=== PATIENT | male | born 1950 | race Caucasian/White ===

== ENCOUNTER 2019-01-13 08:26 | Emergency (ER) | payer MEDICARE, MEDICAID ==
[~2019-01-13] VITALS: Ht 165.1 cm; Wt 83.5 kg
[~2019-01-13 08:26] MED LIST: ASPI81TA5 PO; ATEN100T PO; CLOP75TA15 PO; DOCU100T2 PO; FENO134C PO; FURO-144 PO; HYDR12.5 PO; ISOS60TA6 PO; LOSA50TA3 PO; NAPR500T6 PO; PANT40SU PO; PRAV40TA PO; RANO500T3 PO; SPIR25TA PO
--- NOTE | 2019-01-13 08:40 | NUR ---
patient presented to the ER from home BIBRA due to weakness. On room air, breathing evenly and unlabored. Connected to the monitor and pulse ox. MD at bedside for eval. Kept comfortable, will continue to monitor accordingly.
[2019-01-13 08:50] LABS: BASOPHILS % (AUTO) 0.7 % (0.0-2.0); EOSINOPHILS % (AUTO) 1.3 % (0.0-6.0); HEMATOCRIT 52 % (39-51); HEMOGLOBIN 17.4 g/dL (13.5-17.5); LYMPHOCYTES # (AUTO) 1.3 /CMM (0.8-4.8); LYMPHOCYTES % (AUTO) 21.5 % (20.0-44.0); MEAN CORPUSCULAR HGB CONC 34 g/dl (31.0-36.0); MEAN CORPUSCULAR VOLUME 100 fL (80-96); MONOCYTES # (AUTO) 0.3 /CMM (0.1-1.30); MONOCYTES % (AUTO) 5.2 % (2.0-12.0); NEUTROPHILS # (AUTO) 4.2 /CMM (1.8-8.9); NEUTROPHILS % (AUTO) 71.3 % (43.0-81.0); PLATELET COUNT (AUTO) 165 /CMM (150-450)
--- NOTE | 2019-01-13 08:57 | NUR ---
patient wheeled via gurney going for CT scan.
[2019-01-13 08:58] LABS: CREATININE 1.2 mg/dL (0.6-1.3); POTASSIUM 4.5 mmol/L (3.5-5.1)
[2019-01-13] MEDS ORDERED: IV NS 0.9% 1,000 ML BAG IV ONE (09:00)
--- NOTE | 2019-01-13 09:05 | NUR ---
patient came back from ct.
[2019-01-13 09:08] LABS: ALBUMIN 3.3 g/dL (3.4-5.0); BILIRUBIN,DIRECT 0.1 mg/dL (0.0-0.2); BILIRUBIN,TOTAL 0.4 mg/dL (0.2-1.0); TOTAL PROTEIN, SERUM 6.6 g/dL (6.4-8.2)
[2019-01-13] MEDS ORDERED: FOLIC ACID 1 MG TABLET PO ONE (10:00)
[2019-01-13] MEDS ORDERED: THIAMINE HCL 100 MG TABLET PO ONE (10:00)
[2019-01-13] MEDS ORDERED: THIAMINE HCL 100 MG TABLET ONE (10:02)
[2019-01-13] MEDS ORDERED: FOLIC ACID 1 MG TABLET ONE (10:02)
[2019-01-13 11:12] LABS: APPEARANCE,URINE Clear (CLEAR); BILIRUBIN,URINE Negative (NEGATIVE); BLOOD, URINE Negative Ery/uL (NEGATIVE); COLOR,URINE Yellow (YELLOW); KETONES,URINE Negative (NEGATIVE); LEUKOCYTE ESTERASE ,URINE Negative (NEGATIVE); NITRITE, URINE Negative (NEGATIVE); PROTEIN,URINE Negative (NEGATIVE); UGLUCOSE Negative (NEGATIVE); UROBILINOGEN,URINE 0.2 EU/dL (0.2)
[2019-01-13 12:50] VITALS: BP 115/66
--- NOTE | 2019-01-13 12:51 | NUR ---
Patient discharged to home in stable condition. Written and verbal after care instructions given. Patient verbalizes understanding of instruction.IV removed. Catheter intact and site benign. Pressure and 4x4 applied to site. No bleeding noted.
== END 2019-01-13 12:51 | disposition home or self-care (01) ==
LOC: ER 08:28
DX: F10.129 Alcohol abuse with intoxication, unspecified (principal); R53.1 Weakness; I10 Essential (primary) hypertension; Z95.818 Presence of other cardiac implants and grafts; Z79.82 Long term (current) use of aspirin; Z79.899 Other long term (current) drug therapy; Y90.8 Blood alcohol level of 240 mg/100 ml or more
CPT/HCPCS: 36415; 70450; 71045; 80048; 80076; 80305; 80307; 80329; 81001; 82140; 84484; 85025; 85730; 93005 ×2; 96360; 99284; G0480; J7030; 81000-TC

== ENCOUNTER 2019-05-27 14:00 | Outpatient (CLI) | payer MEDICARE, MEDICAID | END 2019-05-27 23:59 | disposition home or self-care (01) | LOC: WOU 14:00 | PROVIDERS: ATTEND Podiatrist Foot & Ankle Surgery | DX: E11.621 Type 2 diabetes mellitus with foot ulcer (principal); L97.418 Non-pressure chronic ulcer of right heel and midfoot with other specified severity; Z79.84 Long term (current) use of oral hypoglycemic drugs; Z95.5 Presence of coronary angioplasty implant and graft; Z79.82 Long term (current) use of aspirin; Z79.899 Other long term (current) drug therapy; I10 Essential (primary) hypertension; E78.5 Hyperlipidemia, unspecified; I25.10 Atherosclerotic heart disease of native coronary artery without angina pectoris | CPT/HCPCS: 11042; 87070-TC ==

== ENCOUNTER 2019-05-28 08:57 | Outpatient (CLI) | payer MEDICARE, MEDICAID | END 2019-05-28 23:59 | disposition home or self-care (01) | LOC: RAD 08:57 | PROVIDERS: ATTEND Podiatrist Foot & Ankle Surgery | DX: Z75.3 Unavailability and inaccessibility of health-care facilities (principal) ==

== ENCOUNTER 2019-05-28 09:30 | Outpatient (CLI) | payer MEDICARE, MEDICAID | END 2019-05-28 23:59 | disposition home or self-care (01) | LOC: WOU 09:30 | PROVIDERS: ATTEND Podiatrist Foot & Ankle Surgery | DX: E11.621 Type 2 diabetes mellitus with foot ulcer (principal); L97.529 Non-pressure chronic ulcer of other part of left foot with unspecified severity; E11.51 Type 2 diabetes mellitus with diabetic peripheral angiopathy without gangrene; I70.203 Unspecified atherosclerosis of native arteries of extremities, bilateral legs | CPT/HCPCS: 73630-TC ==

== ENCOUNTER 2019-06-09 08:50 | Outpatient (CLI) | payer MEDICARE, MEDICAID | END 2019-06-09 23:59 | disposition home or self-care (01) | LOC: WOU 08:50 | PROVIDERS: ATTEND Podiatrist Foot & Ankle Surgery | DX: E11.621 Type 2 diabetes mellitus with foot ulcer (principal); L97.422 Non-pressure chronic ulcer of left heel and midfoot with fat layer exposed; M79.672 Pain in left foot; Z79.84 Long term (current) use of oral hypoglycemic drugs; Z79.02 Long term (current) use of antithrombotics/antiplatelets | CPT/HCPCS: 11042; 82962-TC ==

== ENCOUNTER 2019-06-16 09:00 | Outpatient (CLI) | payer MEDICARE, MEDICAID | END 2019-06-16 23:59 | disposition home or self-care (01) | LOC: WOU 09:00 | PROVIDERS: ATTEND Podiatrist Foot & Ankle Surgery | DX: E11.621 Type 2 diabetes mellitus with foot ulcer (principal); L97.422 Non-pressure chronic ulcer of left heel and midfoot with fat layer exposed; Z79.84 Long term (current) use of oral hypoglycemic drugs; Z79.02 Long term (current) use of antithrombotics/antiplatelets | CPT/HCPCS: 11042; 82962; 87070; 87075; 88305; 88312; J3490 ==

== ENCOUNTER 2019-06-24 14:00 | Outpatient (CLI) | payer MEDICARE, MEDICAID | END 2019-06-24 23:59 | disposition home or self-care (01) | LOC: WOU 14:00 | PROVIDERS: ATTEND Podiatrist Foot & Ankle Surgery | PROC: 0HQNXZZ Repair Left Foot Skin, External Approach (ICD-10-PCS; principal; 2019-06-24) | DX: E11.621 Type 2 diabetes mellitus with foot ulcer (principal); L97.422 Non-pressure chronic ulcer of left heel and midfoot with fat layer exposed | CPT/HCPCS: 12001; J3490 ==

== ENCOUNTER 2019-06-30 09:00 | Outpatient (CLI) | payer MEDICARE, MEDICAID | END 2019-06-30 23:59 | disposition home or self-care (01) | LOC: WOU 09:00 | PROVIDERS: ATTEND Podiatrist Foot & Ankle Surgery | DX: E11.621 Type 2 diabetes mellitus with foot ulcer (principal); L97.428 Non-pressure chronic ulcer of left heel and midfoot with other specified severity; M79.672 Pain in left foot; Z79.84 Long term (current) use of oral hypoglycemic drugs; Z79.02 Long term (current) use of antithrombotics/antiplatelets; Z79.899 Other long term (current) drug therapy | CPT/HCPCS: G0463 ==

== ENCOUNTER 2019-07-15 13:30 | Outpatient (CLI) | payer MEDICARE, MEDICAID | END 2019-07-15 23:59 | disposition home health service (06) | LOC: WOU 13:30 | PROVIDERS: ATTEND Podiatrist Foot & Ankle Surgery | DX: Z48.817 Encounter for surgical aftercare following surgery on the skin and subcutaneous tissue (principal); Z79.84 Long term (current) use of oral hypoglycemic drugs; Z79.82 Long term (current) use of aspirin; E11.69 Type 2 diabetes mellitus with other specified complication; Z86.31 Personal history of diabetic foot ulcer | CPT/HCPCS: 82962; G0463 ==

== ENCOUNTER → 2019-08-12 | Outpatient (CLI) | payer MEDICARE, MEDICAID | END | disposition home health service (06) | LOC: WOU 13:00 | PROVIDERS: ATTEND Podiatrist Foot & Ankle Surgery | DX: L84 Corns and callosities (principal); L85.3 Xerosis cutis; R21 Rash and other nonspecific skin eruption; M79.672 Pain in left foot; E11.9 Type 2 diabetes mellitus without complications; Z86.31 Personal history of diabetic foot ulcer; S40.029A Contusion of unspecified upper arm, initial encounter; W45.8XXA Other foreign body or object entering through skin, initial encounter; Y92.89 Other specified places as the place of occurrence of the external cause | CPT/HCPCS: G0463 ==

== ENCOUNTER 2019-08-19 13:20 | Outpatient (CLI) | payer MEDICARE, MEDICAID | END 2019-08-19 23:59 | disposition home health service (06) | LOC: WOU 13:20 | PROVIDERS: ATTEND Specialist | DX: M79.672 Pain in left foot (principal); L84 Corns and callosities; S40.021A Contusion of right upper arm, initial encounter; X58.XXXA Exposure to other specified factors, initial encounter; Y92.89 Other specified places as the place of occurrence of the external cause | CPT/HCPCS: G0463 ==

== ENCOUNTER 2019-08-26 13:10 | Outpatient (CLI) | payer MEDICARE, MEDICAID | END 2019-08-26 23:59 | disposition home or self-care (01) | LOC: WOU 13:10 | PROVIDERS: ATTEND Specialist | DX: L27.1 Localized skin eruption due to drugs and medicaments taken internally (principal); L29.9 Pruritus, unspecified; E11.40 Type 2 diabetes mellitus with diabetic neuropathy, unspecified; E78.5 Hyperlipidemia, unspecified; I10 Essential (primary) hypertension; Z86.31 Personal history of diabetic foot ulcer; Z79.84 Long term (current) use of oral hypoglycemic drugs; Z79.899 Other long term (current) drug therapy | CPT/HCPCS: G0463 ==

== ENCOUNTER 2019-08-28 10:35 | Outpatient (CLI) | payer MEDICARE, MEDICAID | END 2019-08-28 23:59 | disposition home or self-care (01) | LOC: WOU 10:35 | PROVIDERS: ATTEND Podiatrist Foot & Ankle Surgery | DX: L84 Corns and callosities (principal); E11.40 Type 2 diabetes mellitus with diabetic neuropathy, unspecified; M79.672 Pain in left foot; B35.1 Tinea unguium | CPT/HCPCS: G0463 ==

== ENCOUNTER 2019-09-11 10:45 | Outpatient (CLI) | payer MEDICARE, MEDICAID | END 2019-09-11 23:59 | disposition home health service (06) | LOC: WOU 10:45 | PROVIDERS: ATTEND Podiatrist Foot & Ankle Surgery | DX: L84 Corns and callosities (principal); E11.40 Type 2 diabetes mellitus with diabetic neuropathy, unspecified; M79.672 Pain in left foot; E78.5 Hyperlipidemia, unspecified; I10 Essential (primary) hypertension; Z95.5 Presence of coronary angioplasty implant and graft; Z79.82 Long term (current) use of aspirin | CPT/HCPCS: G0463 ==

== ENCOUNTER 2019-10-14 12:37 | Outpatient (CLI) | payer MEDICARE, MEDICAID | END 2019-10-14 23:59 | disposition home or self-care (01) | LOC: WOU 12:37 | PROVIDERS: ATTEND Podiatrist Foot & Ankle Surgery | DX: Z09 Encounter for follow-up examination after completed treatment for conditions other than malignant neoplasm (principal); L84 Corns and callosities; E11.40 Type 2 diabetes mellitus with diabetic neuropathy, unspecified; Z86.31 Personal history of diabetic foot ulcer; M79.672 Pain in left foot | CPT/HCPCS: G0463 ==

== ENCOUNTER 2019-11-04 12:00 | Outpatient (CLI) | payer MEDICARE, MEDICAID | END 2019-11-04 23:55 | disposition home or self-care (01) | LOC: WOU 12:00 | PROVIDERS: ATTEND Specialist | DX: L24.89 Irritant contact dermatitis due to other agents (principal); E11.40 Type 2 diabetes mellitus with diabetic neuropathy, unspecified; M79.672 Pain in left foot; L84 Corns and callosities; I10 Essential (primary) hypertension; E78.5 Hyperlipidemia, unspecified; Z95.5 Presence of coronary angioplasty implant and graft; Z79.82 Long term (current) use of aspirin; Z79.84 Long term (current) use of oral hypoglycemic drugs | CPT/HCPCS: G0463 ==

== ENCOUNTER 2019-11-11 11:00 | Outpatient (CLI) | payer MEDICARE, MEDICAID | END 2019-11-11 23:59 | disposition home or self-care (01) | LOC: WOU 11:00 | PROVIDERS: ATTEND Specialist | DX: L24.89 Irritant contact dermatitis due to other agents (principal); E11.42 Type 2 diabetes mellitus with diabetic polyneuropathy; I10 Essential (primary) hypertension; E78.5 Hyperlipidemia, unspecified; Z98.61 Coronary angioplasty status | CPT/HCPCS: G0463 ==

== ENCOUNTER 2019-11-18 11:00 | Outpatient (CLI) | payer MEDICARE, MEDICAID | END 2019-11-18 23:59 | disposition home health service (06) | LOC: WOU 11:00 | PROVIDERS: ATTEND Specialist | DX: L24.89 Irritant contact dermatitis due to other agents (principal); Z79.02 Long term (current) use of antithrombotics/antiplatelets; I10 Essential (primary) hypertension; E78.5 Hyperlipidemia, unspecified; Z95.5 Presence of coronary angioplasty implant and graft; E11.40 Type 2 diabetes mellitus with diabetic neuropathy, unspecified; L84 Corns and callosities; M79.672 Pain in left foot; Z79.84 Long term (current) use of oral hypoglycemic drugs | CPT/HCPCS: G0463 ==

== ENCOUNTER 2019-11-25 11:02 | Outpatient (CLI) | payer MEDICARE, MEDICAID | END 2019-11-25 23:59 | disposition home health service (06) | LOC: WOU 11:02 | PROVIDERS: ATTEND Specialist | DX: L24.89 Irritant contact dermatitis due to other agents (principal); L84 Corns and callosities; E78.5 Hyperlipidemia, unspecified; E11.40 Type 2 diabetes mellitus with diabetic neuropathy, unspecified; M79.672 Pain in left foot; Z95.5 Presence of coronary angioplasty implant and graft; I10 Essential (primary) hypertension; Z79.84 Long term (current) use of oral hypoglycemic drugs | CPT/HCPCS: G0463 ==

== ENCOUNTER 2019-12-02 10:50 | Outpatient (CLI) | payer MEDICARE, MEDICAID | END 2019-12-02 23:59 | disposition home health service (06) | LOC: WOU 10:50 | PROVIDERS: ATTEND Specialist | DX: L24.89 Irritant contact dermatitis due to other agents (principal); L84 Corns and callosities; E11.40 Type 2 diabetes mellitus with diabetic neuropathy, unspecified; M79.672 Pain in left foot; I10 Essential (primary) hypertension; Z95.5 Presence of coronary angioplasty implant and graft; Z79.82 Long term (current) use of aspirin; Z79.84 Long term (current) use of oral hypoglycemic drugs | CPT/HCPCS: G0463 ==